=== PATIENT | female | born 1960 | race Caucasian/White ===

== ENCOUNTER 2017-06-20 18:05 | Inpatient (IN) | payer OTHER ==
[2017-06-20] MEDS: ONDANSETRON 4 MG INJ IV (18:36)
[2017-06-20] MEDS: SOD CHLORIDE 0.9% 1,000 ML IV (18:36)
[2017-06-20] MEDS: morphine 4 MG/ML VIAL IV ×2 (18:36→19:00)
[2017-06-20 18:40] LABS: ADD MAN DIFF? NO
[2017-06-20 18:45] LABS: WHITE BLOOD COUNT 9.6 10^3/ul (4.8-10.8)
[2017-06-20 18:45] LABS: BASOPHILS % 0.2 % (0.0-2.0); EOSINOPHILS # 0.1 10^3/ul (0.0-0.5); EOSINOPHILS % 0.5 % (0.0-7.0); HEMATOCRIT 40.4 % (37.0-47.0); HEMOGLOBIN 14.4 g/dl (12.0-16.0); LYMPHOCYTES % 21.1 % (15.0-51.0); MEAN CORPUSCULAR HEMOGLOBIN 30.4 pg (29.0-33.0); MEAN CORPUSCULAR HGB CONC 35.6 g/dl (32.0-37.0); MEAN CORPUSCULAR VOLUME 85.4 fl (82.0-101.0); MEAN PLATELET VOLUME 8.5 fl (7.4-10.4); MONOCYTE # 0.5 10^3/ul (0.3-0.9); MONOCYTES % 5.4 % (0.0-11.0); NEUTROPHIL # 6.9 10^3/ul (1.6-7.5); PLATELET COUNT 155 10^3/UL (140-415); RED BLOOD COUNT 4.73 10^6/ul (4.20-5.40); RED CELL DISTRIBUTION WIDTH 13.2 % (11.5-14.5)
[2017-06-20 18:54] LABS: ADD UMIC YES; UR ASCORBIC ACID NEGATIVE (NEGATIVE); UR BACTERIA FEW /HPF (NONE SEEN); UR BILIRUBIN (Dip) NEGATIVE (NEGATIVE); UR BLOOD (Dip) 1+ mg/dL (NEGATIVE); UR CLARITY CLOUDY (CLEAR); UR COLOR YELLOW (YELLOW); UR GLUCOSE (Dip) NEGATIVE (NEGATIVE); UR KETONES (Dip) NEGATIVE (NEGATIVE); UR LEUKOCYTE ESTERASE (Dip) TRACE Leu/ul (NEGATIVE); UR NITRITE (Dip) POSITIVE (NEGATIVE); UR RBC 2 /HPF (0-5); UR SPECIFIC GRAVITY (Dip) 1.008 (1.003-1.030); UR SQUAMOUS EPITHELIAL CELL FEW /HPF (FEW); UR TOTAL PROTEIN (Dip) 1+ mg/dl (NEGATIVE); UR UROBILINOGEN (Dip) NEGATIVE (NEGATIVE); UR WBC 14 /HPF (0-5)
[2017-06-20 19:05] LABS: INR 0.93; PARTIAL THROMBOPLASTIN TIME 24.4 Sec (25.0-35.0); PROTIME 12.6 Sec (11.9-14.9)
[2017-06-20 19:06] LABS: ALANINE AMINOTRANSFERASE 49 IU/L (13-69); ALBUMIN 4.9 g/dl (3.3-4.9); ALBUMIN/GLOBULIN RATIO 1.25; ALKALINE PHOSPHATASE 98 IU/L (42-121); ANION GAP 21 (8-16); ASPARTATE AMINO TRANSFERASE 36 IU/L (15-46); BILIRUBIN,INDIRECT 0.3 mg/dl (0-1.1); BILIRUBIN,TOTAL 0.3 mg/dl (0.2-1.3); BLOOD UREA NITROGEN 15 mg/dl (7-20); CALCIUM 9.4 mg/dl (8.4-10.2); CARBON DIOXIDE 24 mmol/L (21-31); CHLORIDE 97 mmol/L (97-110); CREATININE 0.69 mg/dl (0.44-1.00); GLUCOSE 139 mg/dl (70-220); POTASSIUM 3.7 mmol/L (3.5-5.1); SODIUM 138 mmol/L (135-144); TOTAL PROTEIN 8.8 g/dl (6.1-8.1)
[2017-06-20 19:22] LABS: TROPONIN-I < 0.012 ng/ml (0.00-0.12)
[2017-06-20 19:30] LABS: LACTIC ACID 3.1 mmol/L (0.5-2.0)
[2017-06-20] MEDS: CEFTRIAXONE 1 GM/50 ML (PMX) 50 ML IVPB (20:03)
[2017-06-20] MEDS ORDERED: ONDANSETRON 4 MG INJ IV (21:00)
[2017-06-20] MEDS ORDERED: ACETAMINOPHEN 325 MG TAB PO (21:00)
[2017-06-20] MEDS ORDERED: BISACODYL (EC) 5 MG TAB PO (21:30)
[2017-06-20] MEDS ORDERED: NACL 0.9% 3 ML SYG IV (21:30)
[2017-06-20 22:33] LABS: LACTIC ACID 2.6 mmol/L (0.5-2.0)
[2017-06-21] MEDS: SOD CHLORIDE 0.9% 1,000 ML IV ×2 (00:18→14:48)
[2017-06-21 00:23] LABS: INR 0.97
[2017-06-21 00:24] LABS: PARTIAL THROMBOPLASTIN TIME 24.9 Sec (25.0-35.0)
[2017-06-21 00:25] LABS: LACTIC ACID 2.4 mmol/L (0.5-2.0)
[2017-06-21 07:27] LABS: ADD MAN DIFF? NO
[2017-06-21 07:37] LABS: WHITE BLOOD COUNT 7.1 10^3/ul (4.8-10.8)
[2017-06-21 07:37] LABS: BASOPHILS % 0.1 % (0.0-2.0); EOSINOPHILS # 0.1 10^3/ul (0.0-0.5); HEMATOCRIT 36.4 % (37.0-47.0); HEMOGLOBIN 12.8 g/dl (12.0-16.0); LYMPHOCYTES % 27.5 % (15.0-51.0); MEAN CORPUSCULAR HEMOGLOBIN 30.3 pg (29.0-33.0); MEAN CORPUSCULAR HGB CONC 35.2 g/dl (32.0-37.0); MEAN CORPUSCULAR VOLUME 86.1 fl (82.0-101.0); MEAN PLATELET VOLUME 8.5 fl (7.4-10.4); MONOCYTE # 0.4 10^3/ul (0.3-0.9); MONOCYTES % 5.3 % (0.0-11.0); NEUTROPHIL # 4.7 10^3/ul (1.6-7.5); NEUTROPHILS % 65.5 % (39.0-77.0); PLATELET COUNT 134 10^3/UL (140-415); RED BLOOD COUNT 4.23 10^6/ul (4.20-5.40)
[2017-06-21 07:55] LABS: ALANINE AMINOTRANSFERASE 40 IU/L (13-69); ALBUMIN 3.8 g/dl (3.3-4.9); ALKALINE PHOSPHATASE 79 IU/L (42-121); ANION GAP 14 (8-16); ASPARTATE AMINO TRANSFERASE 23 IU/L (15-46); BILIRUBIN,INDIRECT 0.3 mg/dl (0-1.1); BILIRUBIN,TOTAL 0.3 mg/dl (0.2-1.3); BLOOD UREA NITROGEN 12 mg/dl (7-20); CARBON DIOXIDE 27 mmol/L (21-31); CHLORIDE 105 mmol/L (97-110); CHOL/HDL RATIO 3.7 RATIO; CHOLESTEROL 180 mg/dl (100-200); CREATININE 0.67 mg/dl (0.44-1.00); GLUCOSE 124 mg/dl (70-220); HDL CHOLESTEROL 48 mg/dl (37-92); LDL CHOLESTEROL,CALCULATED 99 mg/dl; POTASSIUM 4.2 mmol/L (3.5-5.1); SODIUM 142 mmol/L (135-144); TOTAL PROTEIN 6.5 g/dl (6.1-8.1); TRIGLYCERIDES 167 mg/dl (0-149)
[2017-06-21 08:10] LABS: HEMOGLOBIN A1C 5.7 % (0-5.9)
[2017-06-21] MEDS: FAMOTIDINE 20 MG TAB PO ×2 (10:31→20:12)
[2017-06-21] MEDS: ACETAMINOPHEN 325 MG TAB PO (14:47)
[2017-06-21] MEDS: ONDANSETRON 4 MG INJ IV (14:47)
[2017-06-21] MEDS: DEXAMETHASONE 4 MG/ML 1 ML INJ IV (17:38)
[2017-06-21] MEDS: CEFTRIAXONE 1 GM/50 ML (PMX) 50 ML IVPB (20:12)
[2017-06-22] MEDS: DEXAMETHASONE 4 MG/ML 1 ML INJ IV ×5 (00:20→23:45)
[2017-06-22] MEDS: SOD CHLORIDE 0.9% 1,000 ML IV (05:24)
[2017-06-22] MEDS: VANCOMYCIN 1.5 GM in SOD CHLORIDE 0.9% 250 ML IVPB (05:24)
[2017-06-22] MEDS ORDERED: VANCOMYCIN IV PER PHARMACY XX (06:00)
[2017-06-22] MEDS: FAMOTIDINE 20 MG TAB PO ×2 (09:05→20:31)
[2017-06-22] MEDS ORDERED: GLUCOSE GEL 15 GRAM TUBE BUCCAL (17:30)
[2017-06-22] MEDS ORDERED: DEXTROSE 50% 50 ML SYRINGE IV ×2 (17:30)
[2017-06-22] MEDS ORDERED: GLUCAGON 1 MG INJ IM (17:30)
[2017-06-22] MEDS ORDERED: GLUCOSE GEL 15 GRAM TUBE PO ×2 (17:30)
[2017-06-22] MEDS ORDERED: VANCOMYCIN 1.25 GM in SOD CHLORIDE 0.9% 250 ML IVPB (18:00)
[2017-06-22] MEDS: INSULIN ASPART [NOVOLOG] 3 ML PEN SC ×2 (18:56→20:30)
[2017-06-22] MEDS: CEFTRIAXONE 1 GM/50 ML (PMX) 50 ML IVPB (20:30)
[2017-06-22] MEDS: INSULIN GLARGINE [LANtus] 3 ML PEN SC (20:30)
[2017-06-23] MEDS: DEXAMETHASONE 4 MG/ML 1 ML INJ IV ×3 (06:08→17:29)
[2017-06-23] MEDS: FAMOTIDINE 20 MG TAB PO ×2 (08:46→21:32)
[2017-06-23] MEDS: INSULIN ASPART [NOVOLOG] 3 ML PEN SC ×4 (08:49→22:00)
[2017-06-23] MEDS: CEFTRIAXONE 1 GM/50 ML (PMX) 50 ML IVPB (21:32)
[2017-06-23] MEDS: INSULIN GLARGINE [LANtus] 3 ML PEN SC (22:01)
[2017-06-24] MEDS: DEXAMETHASONE 4 MG/ML 1 ML INJ IV ×4 (01:11→17:57)
[2017-06-24] MEDS: FAMOTIDINE 20 MG TAB PO ×2 (08:59→21:03)
[2017-06-24] MEDS: INSULIN ASPART [NOVOLOG] 3 ML PEN SC ×4 (09:02→21:03)
[2017-06-24] MEDS: INSULIN GLARGINE [LANtus] 3 ML PEN SC (21:02)
[2017-06-24] MEDS: DOCUSATE SODIUM 100 MG CAP PO (21:03)
[2017-06-25] MEDS: DEXAMETHASONE 4 MG/ML 1 ML INJ IV ×3 (00:15→12:00)
[2017-06-25] MEDS: ACCU-CHEK XX (02:00)
[2017-06-25] MEDS: FAMOTIDINE 20 MG TAB PO (08:42)
[2017-06-25] MEDS: INSULIN ASPART [NOVOLOG] 3 ML PEN SC ×2 (08:45→12:42)
== END 2017-06-25 16:05 | disposition short-term general hospital (02) | DRG 871 ==
LOC: MS4 20:32 → MS1 06-24 01:02 → E/R 18:05
DX: A41.9 Sepsis, unspecified organism (principal); G93.6 Cerebral edema; C78.00 Secondary malignant neoplasm of unspecified lung; C79.31 Secondary malignant neoplasm of brain; N39.0 Urinary tract infection, site not specified; R65.20 Severe sepsis without septic shock; C53.9 Malignant neoplasm of cervix uteri, unspecified; E11.65 Type 2 diabetes mellitus with hyperglycemia
CPT/HCPCS: 36415; 70450; 70553; 71045; 80053; 80061; 81001; 82962; 83036; 83605; 84443; 84484; 85025; 85610; 85730; 86850; 86900; 86901; 87040; 87086; 87400; 93005; 96374; 96375; 99291-25